=== PATIENT | female | born 1990 | race Caucasian/White ===

== ENCOUNTER 2017-06-01 12:43 | Emergency (ER) | payer BC, OTHER ==
[2017-06-01] MEDS ORDERED: Acetaminophen 500 MG TAB ONE (14:03)
== END 2017-06-01 14:29 | disposition home or self-care (01) ==
LOC: ERS 12:43
DX: J01.90 Acute sinusitis, unspecified (principal); F32.9 Major depressive disorder, single episode, unspecified; Z87.891 Personal history of nicotine dependence
CPT/HCPCS: 87804; 99283

== ENCOUNTER 2018-09-10 14:53 | Inpatient (IN) | payer OTHER ==
[2018-09-07] MEDS: Misoprostol 100 MCG TAB VAG SCH (05:55)
[~2018-09-10 14:53] MED LIST: Lidocaine 2% MPF 10 ML AMP (For Epidural Use) ONE
[2018-09-10] MEDS ORDERED: Methylergonovine 0.2 MG/ML VIAL IM PRN (20:58)
[2018-09-10] MEDS ORDERED: Carboprost 250 MCG/ML AMP IM PRN (20:58)
[2018-09-10] MEDS ORDERED: Diphenoxylate HCl/Atropine Tablet PO PRN ×2 (20:58)
[2018-09-10] MEDS ORDERED: Promethazine HCl 25 MG/ML VIAL IM PRN (20:58)
[2018-09-10] MEDS ORDERED: NS / Oxytocin 40 units/1000ml 1,000 ML IV PRN (20:58)
[2018-09-10] MEDS ORDERED: Misoprostol 200 MCG TAB PR PRN (20:58)
[2018-09-10] MEDS ORDERED: Ondansetron PF 4 MG/2 ML Vial IVP PRN (20:58)
[2018-09-10] MEDS ORDERED: Lidocaine 1% (PF) 30 ML VIAL SC PRN (20:58)
[2018-09-10] MEDS ORDERED: Ibuprofen 800 MG TAB PO PRN (20:58)
[2018-09-10] MEDS ORDERED: Butorphanol Tartrate 1 MG/ML VIAL SLOW IVP PRN (20:58)
[2018-09-10] MEDS ORDERED: NS w/ Oxytocin 10 units 500 ML IV SCH ×2 (21:00)
[2018-09-10] MEDS ORDERED: Penicillin G Potassium 5 MILL.UNITS in Sodium Chloride 0.9% 100 ML IVPB SCH (21:00)
--- NOTE | 2018-09-10 21:13 | PDOC.LDHP ---
Labor and Delivery H&P Chief complaint: scheduled induction HPI: 28 y/o at 39 and 0/7 wks, GBS POS, presents for term induction of labor. Current gestational age (weeks): 39 Due date: 09/17/18 Grav: 3 Para: 1 Current complications: none Abnormal US findings: No Current medications: pre-giovanni vitamins Allergies/Adverse Reactions: Allergies Allergy/AdvReac Type Severity Reaction Status Date / Time acetaminophen [From [place]] Allergy Rash Verified 11/04/16 14:51 hydrocodone [From [place]] Allergy Rash Verified 11/04/16 14:51 pseudoephedrine Allergy Rash Verified 11/04/16 14:51 - Physical Exam Vital signs reviewed and normal: yes General: NAD, resting Heart: RRR Lungs: nonlabored breathing Abdomen: NTTP Extremeties: no edema FHT: category 1 - Assessment L&D Assessment: elective induction at term - Plan Plan: admit to L&D, cervical ripening
[2018-09-10 21:44] VITALS: BMI 23.3
[2018-09-10] MEDS: Lactated Ringer's 1,000 ML IV SCH (21:57)
[2018-09-10] MEDS: Misoprostol 100 MCG TAB VAG SCH (22:16)
[2018-09-10 22:17] LABS: Hemoglobin 11.6 g/dL (12.0-16.0); Mean Corpuscular HGB CONC 33.7 g/dL (32.0-36.0); Mean Corpuscular Hemoglobin 31.9 pg (27.0-31.0); Mean Corpuscular Volume 94.8 fL (78.0-98.0); Mean Platelet Volume 8.3 fL (7.4-10.4); Platelet Count 249 thou/uL (130-400); RBC Distribution Width 11.9 % (11.5-14.5); Red Blood Cell (RBC) Count 3.63 mill/uL (4.20-5.40); White Blood Cell (WBC) Count 12.7 thou/uL (4.8-10.8)
[2018-09-10 22:54] LABS: Syphilis Antibody Nonreactive (Nonreactive); Syphilis Antibody Index 0.05 S/CO (<1.00 Non-Reactive)
[2018-09-10] MEDS ORDERED: Calcium Carbonate 500 MG ChewTAB PO PRN (23:10)
[2018-09-11 01:04] LABS: HBSAg Index 0.27 S/CO (0-0.99); Hep B Surf Ag Non-Reactive S/CO (NonReactive)
[2018-09-11] MEDS: Misoprostol 100 MCG TAB VAG SCH ×5 (01:51→16:26)
[2018-09-11] MEDS: Lactated Ringer's 1,000 ML IV SCH ×2 (05:00→12:51)
[2018-09-11] MEDS: Penicillin G 2.5 MILL.units 2.5 MILL.UNITS in Premix Bag 1 BAG IVPB SCH ×5 (07:04→17:38)
[2018-09-11] MEDS ORDERED: Fentanyl 4 mcg/Bup 0.1% Cadd 100 ML ONE (08:03)
[2018-09-11] MEDS ORDERED: Lidocaine 1.5%/Epinephrine 1:200,000 5 ML AMPUL IJ ONE (08:04)
[2018-09-11] MEDS ORDERED: ePHEDrine/0.9% NaCl/PF SYRINGE 50 mg/10 ml SLOW IVP PRN (08:56)
[2018-09-11] MEDS ORDERED: Ondansetron PF 4 MG/2 ML Vial IVP PRN ×2 (08:56→17:44)
[2018-09-11] MEDS ORDERED: Naloxone HCl 0.4 mg/ml Vial IVP PRN ×2 (08:56)
[2018-09-11] MEDS ORDERED: Promethazine HCl 25 MG/ML VIAL IM PRN ×2 (08:56→17:44)
[2018-09-11] MEDS ORDERED: diphenhydrAMINE 50 MG/ML VIAL IVP PRN (08:56)
[2018-09-11] MEDS ORDERED: Lactated Ringer's 500 ML IV PRN (08:56)
[2018-09-11] MEDS ORDERED: Eucerin (Mineral Oil/Petrolatum,White) 30 gm Jar TOP PRN (08:56)
[2018-09-11] MEDS ORDERED: Acetaminophen 325 MG TAB PO PRN (08:56)
[2018-09-11] MEDS ORDERED: Fentanyl 4 mcg/Bupivacaine 0.1% Cassette 100 ML EPIDURAL SCH (09:00)
[2018-09-11] MEDS ORDERED: Communication Order-Pharmacy FS SCH (09:00)
[2018-09-11] MEDS ORDERED: Lidocaine 2% 10 ML INJ ONE (10:05)
[2018-09-11] MEDS ORDERED: traMADol HCl 50 MG TAB PO PRN ×2 (17:44)
[2018-09-11] MEDS ORDERED: Milk Of Magnesia 30 ML UDCUP PO PRN (17:44)
[2018-09-11] MEDS ORDERED: Lanolin Ointment 7 GM TUBE TOP PRN (17:44)
[2018-09-11] MEDS ORDERED: Bisacodyl 10 MG SUPP PR PRN (17:44)
[2018-09-11] MEDS ORDERED: Benzocaine-Menthol 82.5 ML CAN TOP PRN (17:44)
[2018-09-11] MEDS ORDERED: NS / Oxytocin 40 units/1000ml 1,000 ML IV SCH (17:45)
[2018-09-11] MEDS: Ibuprofen 800 MG TAB PO SCH (21:42)
[2018-09-11] MEDS: Docusate Calcium (SURFAK) 240 MG CAP PO SCH (21:42)
[2018-09-12 07:31] LABS: Hemoglobin 11.8 g/dL (12.0-16.0); Mean Corpuscular HGB CONC 34.7 g/dL (32.0-36.0); Mean Corpuscular Hemoglobin 32.8 pg (27.0-31.0); Mean Corpuscular Volume 94.4 fL (78.0-98.0); Mean Platelet Volume 8.3 fL (7.4-10.4); Platelet Count 248 thou/uL (130-400); RBC Distribution Width 11.8 % (11.5-14.5); Red Blood Cell (RBC) Count 3.59 mill/uL (4.20-5.40); White Blood Cell (WBC) Count 15.5 thou/uL (4.8-10.8)
[2018-09-12] MEDS: Docusate Calcium (SURFAK) 240 MG CAP PO SCH (08:54)
[2018-09-12] MEDS: Ferrous Sulfate 325 MG TAB PO SCH ×2 (08:54→17:56)
[2018-09-12] MEDS ORDERED: Prenatal Vitamin 1 TAB PO SCH (09:00)
[2018-09-12] MEDS ORDERED: Varicella virus, LIVE 0.5 ML VIAL SC ONE (09:00)
[2018-09-12] MEDS ORDERED: Adacel (T-DAP) 0.5 ML SYRINGE IM ONE (09:00)
[2018-09-12] MEDS ORDERED: Measles/Mumps/Rubella 10 MCG/0.5 ML VIAL SC ONE (09:00)
[2018-09-12] MEDS: Ibuprofen 800 MG TAB PO SCH ×2 (09:31→17:12)
[2018-09-12 12:04] VITALS: BP 100/59; TEMP 97.9
--- NOTE | 2018-09-12 18:33 | PDOC.PP ---
Post Progress Note Post Day #: 1 PO intake tolerated: yes Flatus: yes Ambulation: yes Vital Signs (12 hours) Temp Pulse Resp BP Pulse Ox 09/12/18 11:55 97.9 F 62 16 100/59 L 99 09/12/18 08:30 96 09/12/18 07:35 98.4 F 65 16 95/51 L 96 Weight Weight 140 lb - Physical Examination General: NAD Cardiovascular: no m/r/g, RRR Respiratory: clear to auscultation bilaterally, non-labored breathing Abdominal: + bowel sounds, lochia Extremities: negative homans (B) Neurological: no gross focal deficits Psychiatric: A&Ox3, normal affect Result Diagrams: 09/12/18 07:00 Additional Labs: Post Labs Blood Type A POSITIVE 09/10/18 22:49 Hep Bs Antigen Non-Reactive S/CO (NonReactive) 09/10/18 21:55
--- NOTE | 2018-09-13 04:50 | DN ---
DATE OF PROCEDURE: 09/11/2018 PREOPERATIVE DIAGNOSIS: Intrauterine at 39 weeks and 1 day with a term induction of labor. POSTOPERATIVE DIAGNOSIS: Intrauterine at 39 weeks and 1 day with a term induction of labor. PROCEDURES: Spontaneous vaginal delivery over intact perineum. FINDINGS: Viable female weighing 3208 g or 7 pounds 1 ounce. Apgars 8 and 9. QUANTITATIVE BLOOD LOSS: 135 mL. COMPLICATIONS: None. PROCEDURE IN DETAIL: The patient presented to [facility] where she was admitted to the labor and delivery service. The patient underwent a normal and uneventful labor with normal cervical dilatation until she was found to be completely dilated. She was then allowed to push and was able to bring the baby down and delivered the baby in a vertex presentation without difficulties. Once the head delivered in occiput anterior position, the shoulders followed spontaneously along with the rest of the baby's body. Once out the baby's mouth and nose were bulb suctioned. The cord was clamped and cut and baby was handed to waiting attendants. Cord blood was collected. Gentle fundal massage was performed and the placenta delivered intact without problems. Hemostasis was assured. Quantitative blood loss was calculated. Inspection of the cervix, vaginal vault, and perineum did not reveal any lacerations needing suturing. Once again, hemostasis was within normal limits and the patient was allowed to recover in the labor and delivery room. Baby went to nursery. Job ID: [id number]
== END 2018-09-12 18:55 | disposition home or self-care (01) | DRG 807 ==
LOC: L&D 20:46 → 3SW 09-11 18:07
PROVIDERS: ADMIT Obstetrics & Gynecology; ATTEND Obstetrics & Gynecology
PROC: 10E0XZZ Delivery of Products of Conception, External Approach (ICD-10-PCS; principal; 2018-09-11)
DX: O80 Encounter for full-term uncomplicated delivery (principal); Z37.0 Single live birth; Z3A.39 39 weeks gestation of pregnancy
CPT/HCPCS: 36415; 51702; 85027; 86780; 86850; 86900; 86901; 87340; 90715; J2001; J2405; J2540; J3490; J7050